=== PATIENT | male | born 1995 | race Caucasian/White ===

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

== ENCOUNTER → 2017-10-05 | Outpatient (CLI) | payer OTHER ==
[~2017-10-05] MED LIST: GABA-113 PO; HYDR-5688 PO; NAPR-1169 PO
--- NOTE | 2017-10-05 11:19 | DIAGNOSTIC IMAGING REPORT ---
CHEST 2 VIEWS ROUTINE CLINICAL HISTORY: RIGHT SIDED CHEST WALL PAIN COMPARISON STUDY: No previous studies for comparison. FINDINGS: The cardiac and mediastinal contours are normal. There is no evidence of focal pulmonary consolidation. There is no evidence of failure. No pleural effusions are visualized.[There is absence of the anterior aspect of the right first rib, consistent with the clinical history of a rib resection. IMPRESSION: 1. No active disease in the chest Electronically signed by: Uvaldo Cyr M.D. 10/05/2017 11:18 AM Dictated Date/Time: 10/05/2017 11:15 AM
== END | disposition home or self-care (01) ==
LOC: C.RDSM 10:27
PROVIDERS: ATTEND Internal Medicine
DX: R07.89 Other chest pain (principal)

== ENCOUNTER 2017-10-07 16:22 | Emergency (ER) | payer OTHER ==
[~2017-10-07] VITALS: Ht 205.7 cm; Wt 100.2 kg
[2017-10-07 16:27] VITALS: TEMP 36.9; Ht 205.7 cm; Wt 100.2 kg
[2017-10-07] MEDS ORDERED: OPTIRAY 320 IV PRN (17:00)
[2017-10-07] MEDS ORDERED: NAPR-1169 PO (17:01)
[2017-10-07] MEDS ORDERED: GABA-113 PO (17:01)
--- NOTE | 2017-10-07 17:09 | EMERGENCY ROOM VISIT NOTE ---
History First contact with patient: 16:33 Chief Complaint: SHOULDER PAIN Stated Complaint: SHOULDER AND ARM PAIN FOLLOWING SURGERY-CLOT? History of Present Illness The patient is a 22 year old male who presents to the Emergency Room with complaints of right shoulder and right-sided chest pain that has gotten progressively worse over the last several days. The patient is currently going through physical therapy for his right shoulder. He has a history of thoracic outlet syndrome, and underwent a first right rib resection at the end of August. The pain is worse with deep inspiration and movement of the shoulder. He has not taken anything for pain. No recent travel. He does not smoke. The patient's License Clerk was concerned that he may have a blood clot, which is why he came to the emergency department today. Review of Systems 10 system review performed and negative unless noted in HPI or below Past Medical/Surgical History History of hypertension Social History Smoking Status: Never Smoker Occupation Status: [employer] student Current/Historical Medications Scheduled Gabapentin (Neurontin), 300 MG PO TID Naproxen (Naprosyn), 500 MG PO BID Scheduled PRN Hydrocodone/Acetaminophen 5MG/325MG ([place] 5MG/325MG), 1-2 TABLET PO Q4H PRN for Pain Allergies Coded Allergies: Amoxicillin (Unverified Allergy, Intermediate, RASH, 10/07/17) Physical Exam Vital Signs Date Time Temp Pulse Resp B/P (MAP) Pulse Ox O2 Delivery O2 Flow Rate FiO2 10/07/17 19:55 72 18 161/94 99 10/07/17 18:45 73 18 127/80 99 Room Air 10/07/17 16:27 36.9 93 20 133/84 98 Room Air Physical Exam VITALS: Vitals are noted on the nurse's note and reviewed by myself. Vital signs stable. GENERAL: 22-year-old male, in no acute distress, nondiaphoretic, well-developed well-nourished. SKIN: The skin was without rashes, erythema, edema, or bruising. HEAD: Normocephalic atraumatic. NECK: Supple without nuchal rigidity. No JVD. HEART: Regular rate and rhythm without murmurs gallops or rubs. The pain is not reproducible with palpation of the thorax LUNGS: Clear to auscultation bilaterally without wheezes, rales or rhonchi. No accessory muscle use. MUSCULOSKELETAL: Pain with abduction of the right arm. Difficulty with pronation of the right arm. Radial pulse +2. No edema noted. NEURO: Patient was alert and oriented to person place and time. Medical Decision & Procedures ER Provider Diagnostic Interpretation: CTA chest Patient Name: JAVON SALDAÑA Unit Number: [id number] Dictated: 10/07/171841 Transcribed: 10/07/171841 EV Printed Date/Time: [~ rep prt dt]/[~ rep prt tm] [~ rep ct labl] - [~ rep ct ivnm] [facility] [place] [id number] Dictated: 10/07/171841 Transcribed: 10/07/171841 EV Printed Date/Time: [~ rep prt dt]/[~ rep prt tm] [~ rep ct labl] - [~ rep ct ivnm] IMPRESSION: 1. There is no evidence of pulmonary embolus in the main, lobar, or segmental pulmonary arteries. 2. Trace right pleural effusion. The lungs are otherwise clear. Electronically signed by: Maurice Benton M.D. 10/07/2017 6:46 PM Dictated Date/Time: 10/07/2017 6:42 PM The status of this report is Signed. Draft = Not yet reviewed or approved by Radiologist. Signed = Reviewed and approved by Radiologist. <AttendingPhy></AttendingPhy> <FamilyPhy>Rosalind Khan M.D.</FamilyPhy> < PrimaryPhy>Rosalind Khan M.D.</PrimaryPhy> <UnitNumber>[id number]</UnitNumber > <VisitNumber>[id number]</VisitNumber> <PatientName>JAVON SALDAÑA</ PatientName> <DateOfBirth>1995</DateOfBirth> <Location>C.EDB</Location> < ServiceDate>10/07/17</ServiceDate> <MNE>ESINDI</MNE> <OrderingPhy>Jessi Gunter PA-C</OrderingPhy> <OrderingPhyMNE>f rep ord dr lopez</OrderingPhyMNE> < DictatingPhyMNE>f rep dict dr lopez</DictatingPhyMNE> <CCListMNE>f rep ct mne</ CCListMNE> <AdmittingPhyMNE>f pt admit dr lopez</AdmittingPhyMNE> <AttendingPhyMNE >f pt attend dr lopez</AttendingPhyMNE> <ConsultingPhyMNE>f pt consult dr lopez</ConsultingPhyMNE> <FamilyPhyMNE>f pt fam dr lopez</FamilyPhyMNE> <OtherPhyMNE>f pt other dr lopez</OtherPhyMNE> < PrimaryPhyMNE>f pt prim care dr lopez</PrimaryPhyMNE> <ReferringPhyMNE>f pt referring dr lopez</ReferringPhyMNE> Upper extremity ultrasound Patient Name: JAVON SALDAÑA Unit Number: [id number] Dictated: 10/07/171817 Transcribed: 10/07/171817 EV Printed Date/Time: [~ rep prt dt]/[~ rep prt tm] [~ rep ct labl] - [~ rep ct ivnm] [facility] Radiology Department [place] [id number] Dictated: 10/07/171817 Transcribed: 10/07/171817 EV Printed Date/Time: [~ rep prt dt]/[~ rep prt tm] [~ rep ct labl] - [~ rep ct ivnm] IMPRESSION: There is no sonographic evidence of deep venous thrombosis identified in the right upper extremity. Electronically signed by: Maurice Benton M.D. 10/07/2017 6:18 PM Dictated Date/Time: 10/07/2017 6:18 PM The status of this report is Signed. Draft = Not yet reviewed or approved by Radiologist. Signed = Reviewed and approved by Radiologist. <AttendingPhy></AttendingPhy> <FamilyPhy>Rosalind Khan M.D.</FamilyPhy> < PrimaryPhy>Rosalind Khan M.D.</PrimaryPhy> <UnitNumber>[id number]</UnitNumber > <VisitNumber>[id number]</VisitNumber> <PatientName>JAVON SALDAÑA</ PatientName> <DateOfBirth>1995</DateOfBirth> <Location>C.EDB</Location> < ServiceDate>10/07/17</ServiceDate> <MNE>ESINDI</MNE> <OrderingPhy>Jessi Gunter PA-C</OrderingPhy> <OrderingPhyMNE>f rep ord dr lopez</OrderingPhyMNE> < DictatingPhyMNE>f rep dict dr lopez</DictatingPhyMNE> <CCListMNE>f rep ct mne</ CCListMNE> <AdmittingPhyMNE>f pt admit dr lopez</AdmittingPhyMNE> <AttendingPhyMNE >f pt attend dr lopez</AttendingPhyMNE> <ConsultingPhyMNE>f pt consult dr lopez</ConsultingPhyMNE> <FamilyPhyMNE>f pt fam dr lopez</FamilyPhyMNE> <OtherPhyMNE>f pt other dr lopez</OtherPhyMNE> < PrimaryPhyMNE>f pt prim care dr lopez</PrimaryPhyMNE> <ReferringPhyMNE>f pt referring dr lopez</ReferringPhyMNE> Laboratory Results 10/07/17 17:04 Red Blood Count 4.31, Mean Corpuscular Volume 87.2, Mean Corpuscular Hemoglobin 29.9, Mean Corpuscular Hemoglobin Concent 34.3, Mean Platelet Volume 10.9, Neutrophils (%) (Auto) 55.3, Lymphocytes (%) (Auto) 25.7, Monocytes (%) (Auto) 7.7, Eosinophils (%) (Auto) 10.3, Basophils (%) (Auto) 0.8, Neutrophils # (Auto ) 3.45, Lymphocytes # (Auto) 1.60, Monocytes # (Auto) 0.48, Eosinophils # (Auto ) 0.64, Basophils # (Auto) 0.05 10/07/17 17:04 Test 10/07/17 17:04 White Blood Count 6.23 K/uL (4.8-10.8) Red Blood Count 4.31 M/uL (4.7-6.1) Hemoglobin 12.9 g/dL (14.0-18.0) Hematocrit 37.6 % (42-52) Mean Corpuscular Volume 87.2 fL (80-100) Mean Corpuscular Hemoglobin 29.9 pg (25-34) Mean Corpuscular Hemoglobin Concent 34.3 g/dl (32-36) Platelet Count 129 K/uL (130-400) Mean Platelet Volume 10.9 fL (7.4-10.4) Neutrophils (%) (Auto) 55.3 % Lymphocytes (%) (Auto) 25.7 % Monocytes (%) (Auto) 7.7 % Eosinophils (%) (Auto) 10.3 % Basophils (%) (Auto) 0.8 % Neutrophils # (Auto) 3.45 K/uL (1.4-6.5) Lymphocytes # (Auto) 1.60 K/uL (1.2-3.4) Monocytes # (Auto) 0.48 K/uL (0.11-0.59) Eosinophils # (Auto) 0.64 K/uL (0-0.5) Basophils # (Auto) 0.05 K/uL (0-0.2) RDW Standard Deviation 39.9 fL (36.4-46.3) RDW Coefficient of Variation 12.5 % (11.5-14.5) Immature Granulocyte % (Auto) 0.2 % Immature Granulocyte # (Auto) 0.01 K/uL (0.00-0.02) Anion Gap 3.0 mmol/L (3-11) Est Creatinine Clear Calc Drug Dose 153.1 ml/min Estimated GFR () 115.2 Estimated GFR (Non- 99.4 BUN/Creatinine Ratio 10.5 (10-20) Calcium Level 8.8 mg/dl (8.5-10.1) Troponin I < 0.015 ng/ml (0-0.045) Medications Administered Medications (Trade) Dose Ordered Sig/Nile Route Start Time Stop Time Status Last Admin Dose Admin Acetaminophen/ Hydrocodone Bitart (Clinton 5/325mg Home Pack) 1 homepack UD ONCE PO 10/07/17 19:45 10/07/17 19:46 DC 10/07/17 19:54 1 HOMEPACK ECG Indication: chest pain Rate (beats per minute): 65 Rhythm: normal sinus Findings: other (early repolarization) Comparison ECG Date: no prior available ED Course Patient was seen and examined Vital signs including blood pressure were reviewed medications list was verified with patient Labs were obtained, and a saline lock was established The patient declined pain medication. Imaging was performed and reviewed. Upon reevaluation, the patient was resting comfortably in bed. We discussed the results of his workup. The case was also discussed with my supervising physician. We both personally reviewed the EKG. I reviewed discharge instructions the patient. They voiced understanding and had no further questions. Medical Decision Differential diagnosis: Musculoskeletal pain, postoperative pain, ligamentous injury, pleurisy, DVT, pulmonary embolus, cardiac abnormality This patient is a 22-year-old male that presents to the emergency department with worsening right-sided chest pain and right shoulder pain. He had surgery a few weeks ago. There was concern for a blood clot. On exam, he had limited range of motion of the shoulder. My thought that this was likely musculoskeletal. An ultrasound and CT of the chest were performed. No DVT/PE were noted. His EKG does not show any signs of acute ischemia. His troponin is negative. The CAT scan did show a small right-sided pleural effusion. I have a very low suspicion that this is infectious in nature as the patient has not had any cough or fever. It was recommended that he follow up in 2 weeks for repeat chest x-ray. Of note, the patient was borderline anemic/ thrombocytopenia. He was informed of this. I also suggested that he follow-up with his primary care physician/[facility] to have a CBC redrawn early next week. He was in agreement with this plan. The patient was given a short course of narcotics for severe pain. He agrees to return to the emergency department with any new, worsening or concerning symptoms. This chart was completed in part utilizing [employer] Speech Voice Recognition software. Attempts were made to minimize the grammatical errors, random word insertions, pronoun errors and incomplete sentences. Any formal questions or concerns about the content, text or information contained within the body of this dictation should be directly addressed to the provider for clarification. 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 (PCP) Patient Instructions My [facility] Additional Instructions You have been evaluated in the emergency department for right shoulder pain and right-sided chest pain. A CAT scan did not show any blood clot. The ultrasound was also negative for blood clot. It did show a small amount of fluid on the right lung. For this, please have a repeat chest x-ray in 2 weeks. Your blood counts were also slightly low. Please have a repeat CBC this coming week. Ibuprofen 600 mg every 6 hours Clinton 1-2 tabs every 4 hours for severe pain. Do not drink alcohol or drive while taking this medication. This may be taken with ibuprofen, but avoid Tylenol. I would advise against significant activity/range of motion with the right arm until it is feeling better. Please follow-up with your primary care physician closely. Call tomorrow morning or Monday morning for a follow-up appointment. Do not hesitate to return to the emergency department with any new, worsening or concerning symptoms. Problem Qualifiers
[2017-10-07 17:15] LABS: BASO % 0.8 %; BASO ABS # 0.05 K/uL (0-0.2); EOS % 10.3 %; EOS ABS # 0.64 K/uL (0-0.5); HEMATOCRIT 37.6 % (42-52); HEMOGLOBIN 12.9 g/dL (14.0-18.0); IG# 0.01 K/uL (0.00-0.02); LYMPH % 25.7 %; MEAN CELL VOLUME 87.2 fL (80-100); MEAN CORPUSCULAR HEMOGLOBIN 29.9 pg (25-34); MEAN CORPUSCULAR HGB CONC 34.3 g/dl (32-36); MEAN PLATELET VOLUME 10.9 fL (7.4-10.4); MONO % 7.7 %; MONO ABS # 0.48 K/uL (0.11-0.59); NEUT % 55.3 %; NEUT ABS # 3.45 K/uL (1.4-6.5); PLATELET COUNT 129 K/uL (130-400); RED CELL DISTRIBUTION WIDTH CV 12.5 % (11.5-14.5); RED CELL DISTRIBUTION WIDTH SD 39.9 fL (36.4-46.3); WHITE BLOOD COUNT 6.23 K/uL (4.8-10.8)
[2017-10-07 17:32] LABS: BLOOD UREA NITROGEN 11 mg/dl (7-18); CALCIUM 8.8 mg/dl (8.5-10.1); CARBON DIOXIDE 32 mmol/L (21-32); CREATININE 1.07 mg/dl (0.60-1.40); GLUCOSE 90 mg/dl (70-99); SODIUM 137 mmol/L (136-145)
--- NOTE | 2017-10-07 18:20 | DIAGNOSTIC IMAGING REPORT ---
ULTRASOUND RIGHT UPPER EXTREMITY VENOUS CLINICAL HISTORY: Right arm pain. COMPARISON STUDY: Right upper extremity venous ultrasound dated 10/20/2016. TECHNIQUE: Real-time, grayscale, and color Doppler sonography of the deep veins of the right upper extremity is performed. Compression and augmentation were utilized. FINDINGS: There is no sonographic evidence of deep venous thrombosis identified in the right upper extremity. The right internal jugular, axillary, and brachial veins are patent and normally compressible. Normal venous waveforms and augmentation are seen within the right subclavian vein. The cephalic and basilic veins are clear. The visualized radial and ulnar veins are patent. IMPRESSION: There is no sonographic evidence of deep venous thrombosis identified in the right upper extremity. Electronically signed by: Maurice Benton M.D. 10/07/2017 6:18 PM Dictated Date/Time: 10/07/2017 6:18 PM
--- NOTE | 2017-10-07 18:47 | DIAGNOSTIC IMAGING REPORT ---
CT ANGIOGRAM OF THE CHEST CLINICAL HISTORY: Atypical chest pain. COMPARISON STUDY: Chest x-ray dated 10/05/2017. TECHNIQUE: Following the IV administration of 94 cc of Optiray 320, CT angiogram of the chest was performed from the upper abdomen to the thoracic inlet utilizing the pulmonary embolus protocol. Images are reviewed in the axial, sagittal, and coronal planes. 3-D MIPS images are created and assessed. IV contrast was administered without complication. A dose lowering technique was utilized adhering to the principles of ALARA. The examination is degraded by streak artifact from the right arm which could not be elevated above the chest. CT DOSE: 486.05 mGy.cm FINDINGS: Thyroid: Imaged portions of the thyroid gland are normal in size and attenuation. Thoracic aorta: The thoracic aorta is normal in caliber and demonstrates standard 3-vessel arch anatomy. No dissection is seen. Pulmonary vasculature: The pulmonary trunk is normal in caliber. There are no filling defects identified in main, lobar, or segmental pulmonary branches to suggest pulmonary embolus. Heart: The heart is normal in size and configuration, and without pericardial effusion. Lungs and pleural spaces: There is a trace right pleural effusion. The lungs and pleural spaces are otherwise clear. The trachea and central airways are patent. Mediastinum: Residual thymic tissue is noted in the anterior mediastinum. There is no mediastinal lymphadenopathy. [place]: Clear. Axillae: There is no axillary lymphadenopathy. Upper abdomen: Partially visualized upper abdominal viscera is within normal limits. Skeletal structures: No lytic or blastic bony lesions are seen. A portion of the right first rib appears absent. IMPRESSION: 1. There is no evidence of pulmonary embolus in the main, lobar, or segmental pulmonary arteries. 2. Trace right pleural effusion. The lungs are otherwise clear. Electronically signed by: Maurice Benton M.D. 10/07/2017 6:46 PM Dictated Date/Time: 10/07/2017 6:42 PM
[2017-10-07] MEDS ORDERED: HYDR-5688 PO (19:28)
[2017-10-07] MEDS ORDERED: NORCO 5/325MG HOME PACK PO ONE (19:45)
[2017-10-07 19:55] VITALS: BP 161/94; PULSE 72; O2SAT 99
== END 2017-10-07 19:58 | disposition home or self-care (01) ==
LOC: C.EDB 16:23
DX: M25.511 Pain in right shoulder (principal); R07.9 Chest pain, unspecified; G54.0 Brachial plexus disorders; I10 Essential (primary) hypertension; J90 Pleural effusion, not elsewhere classified

== ENCOUNTER → 2017-10-17 | Outpatient (CLI) | payer OTHER ==
--- NOTE | 2017-10-17 16:10 | DIAGNOSTIC IMAGING REPORT ---
CHEST 2 VIEWS ROUTINE CLINICAL HISTORY: Right sided chest wall pain. COMPARISON STUDY: Chest CT October 07, 2017. FINDINGS: There is no pneumothorax or pleural effusion. The anterior right first rib has been resected. Lung volumes are normal. Lungs are clear. Pulmonary vascularity is normal. IMPRESSION: 1. No acute cardiopulmonary findings. 2. Status post resection of the anterior right first rib. Electronically signed by: Alexandro Griggs M.D. 10/17/2017 4:09 PM Dictated Date/Time: 10/17/2017 4:06 PM
== END | disposition home or self-care (01) ==
LOC: C.RDSM 08:00
PROVIDERS: ATTEND Internal Medicine
DX: R07.89 Other chest pain (principal)